=== PATIENT | female | born 1985 | race African-American/Black ===

== ENCOUNTER 2018-10-25 08:03 | Emergency (ER) | payer SELFPAY ==
--- NOTE | 2018-10-25 08:43 | RAD ---
CHEST PA AND LATERAL: HISTORY: A 33-year-old female with a history of chest pain for 2 days. COMPARISON: 09/11/2014. FINDINGS: Heart size is normal. The lungs are clear. IMPRESSION: No acute intrathoracic disease. Stable from prior study. POS: [facility]
[2018-10-25] MEDS ORDERED: HYDROcodone/Acetaminophen 10/325 mg Tablet ONE (09:06)
[2018-10-25 09:23] LABS: Hemoglobin 13.7 g/dL (12.0-16.0); Mean Corpuscular HGB CONC 33.4 g/dL (32.0-36.0); Mean Corpuscular Hemoglobin 28.9 pg (27.0-31.0); Mean Corpuscular Volume 86.5 fL (78.0-98.0); Mean Platelet Volume 6.9 fL (7.4-10.4); Platelet Count 397 thou/uL (130-400); RBC Distribution Width 11.9 % (11.5-14.5); Red Blood Cell (RBC) Count 4.75 mill/uL (4.20-5.40)
[2018-10-25 09:27] LABS: BHCG - Serum Negative (NEGATIVE); Pregs Control Background? CLEAR/WHITE (CLR/WHITE); Pregs Control Bar Appear? YES (CONTROL BAR)
[2018-10-25 09:36] LABS: ALT (SGPT) 55 U/L (8-55); AST (SGOT) 32 U/L (5-34); Albumin 4.4 g/dL (3.5-5.0); Alkaline Phosphatase 114 U/L (40-150); Anion Gap 16 mmol/L (10-20); BUN (Urea Nitrogen) 11 mg/dL (7.0-18.7); Bilirubin, Total 0.3 mg/dL (0.2-1.2); Calc. Creatinine Clearance 0 mL/min (70-130); Carbon Dioxide 23 mmol/L (22-29); Chloride 104 mmol/L (98-107); Estimated GFR-MDRD 87; Globulin 3.6 g/dL (2.4-3.5); Glucose 105 mg/dL (70-105); Potassium 3.7 mmol/L (3.5-5.1); Sodium 139 mmol/L (136-145)
[2018-10-25 09:40] LABS: Band 2 % (5-11); Lymphocytes 59 % (21-51); MDiff Complete? YES; Monocytes 5 % (0-10); Neutrophil 32 % (42-75); RBC Morphology Normal; Reactive Lymphocytes 2 % (0-10)
[2018-10-25] MEDS ORDERED: Acetaminophen 325 MG TAB ONE (10:25)
--- NOTE | 2018-10-26 13:51 | EKG ---
Test Reason : CP Blood Pressure : / mmHG Vent. Rate : 078 BPM Atrial Rate : 080 BPM P-R Int : 000 ms QRS Dur : 080 ms QT Int : 360 ms P-R-T Axes : 000 058 028 degrees QTc Int : 410 ms Accelerated Junctional rhythm Abnormal ECG Confirmed by BARRY SAEED D.O. ([id number]), photo editor JAYLON PIPER ([id number]) on 10/26/2018 1:51:16 PM Referred By: Confirmed By:BARRY SAEED D.O.
== END 2018-10-25 11:49 | disposition home or self-care (01) ==
LOC: ERS 08:03
DX: J18.9 Pneumonia, unspecified organism (principal); J45.909 Unspecified asthma, uncomplicated; F41.9 Anxiety disorder, unspecified; Z79.899 Other long term (current) drug therapy; Z79.51 Long term (current) use of inhaled steroids
CPT/HCPCS: 36415; 71046; 80053; 83880; 84484; 84703; 85025; 85379; 87804; 93005; 94640; J7620

== ENCOUNTER 2018-11-22 14:17 | Emergency (ER) | payer SELFPAY ==
[~2018-11-22 14:17] MED LIST: ISOVUE-370 76%-LOCM 1 ML ONE
[2018-11-22] MEDS ORDERED: Morphine 4 MG/ML VIAL ONE (14:35)
[2018-11-22] MEDS ORDERED: Ondansetron PF 4 MG/2 ML Vial ONE (14:38)
[2018-11-22 14:56] LABS: #Lymphocytes 3.5 thou/uL (1.20-3.40); #Monocytes 0.5 thou/uL (0.11-0.59); #Neutrophils 4.5 thou/uL (1.40-6.50); %Basophils 0.4 % (0.0-1.0); %Eosinophils 0.2 % (0.0-10.0); %Lymphocytes 40.8 % (21.0-51.0); %Monocytes 5.9 % (0.0-10.0); %Neutrophils 52.6 % (42.0-75.0); Mean Corpuscular HGB CONC 32.6 g/dL (32.0-36.0); Mean Corpuscular Hemoglobin 28.5 pg (27.0-31.0); Mean Corpuscular Volume 87.5 fL (78.0-98.0); Mean Platelet Volume 6.5 fL (7.4-10.4); Platelet Count 373 thou/uL (130-400); RBC Distribution Width 11.8 % (11.5-14.5); Red Blood Cell (RBC) Count 4.56 mill/uL (4.20-5.40); White Blood Cell (WBC) Count 8.5 thou/uL (4.8-10.8)
[2018-11-22 15:05] LABS: BHCG - Serum Negative (NEGATIVE); Pregs Control Background? CLEAR/WHITE (CLR/WHITE); Pregs Control Bar Appear? YES (CONTROL BAR)
[2018-11-22 15:15] LABS: ALT (SGPT) 64 U/L (8-55); AST (SGOT) 42 U/L (5-34); Albumin 4.6 g/dL (3.5-5.0); Alkaline Phosphatase 112 U/L (40-150); Anion Gap 13 mmol/L (10-20); BUN (Urea Nitrogen) 14 mg/dL (7.0-18.7); Bilirubin, Total 0.3 mg/dL (0.2-1.2); Calc. Creatinine Clearance 0 mL/min (70-130); Calcium 10.1 mg/dL (7.8-10.44); Carbon Dioxide 25 mmol/L (22-29); Chloride 106 mmol/L (98-107); Estimated GFR-MDRD 78; Globulin 3.6 g/dL (2.4-3.5); Glucose 100 mg/dL (70-105); Potassium 3.9 mmol/L (3.5-5.1); Protein, Total 8.2 g/dL (6.0-8.3); Sodium 140 mmol/L (136-145)
--- NOTE | 2018-11-22 15:51 | CT ---
CT CERVICAL SPINE PERFORMED WITHOUT CONTRAST ENHANCEMENT: Date: 11/22/18 HISTORY: Fall with neck pain. FINDINGS: The vertebral bodies are normal in height. Disc spaces appear well preserved. The facets are in juanito l alignment. There is no evidence for canal or foraminal stenosis. There is no CT evidence of fractur e. The lung apices are clear. IMPRESSION: No CT evidence of fracture of the cervical spine. POS: [facility]
--- NOTE | 2018-11-22 15:52 | CT ---
CT BRAIN WITHOUT CONTRAST: Date: 11/22/18 HISTORY: Fall. Headache. FINDINGS: No evidence of infarct, hemorrhage, midline shift, or abnormal extra-axial fluid collections are seen . The ventricular size is normal and the basilar cisterns are patent. The bony calvarium is intact. T he visualized paranasal sinuses and mastoid air cells are well aerated. IMPRESSION: No CT evidence of acute intracranial process. POS: [facility]
--- NOTE | 2018-11-22 16:00 | CT ---
CT OF ABDOMEN AND PELVIS PERFORMED WITH IV CONTRAST ENHANCEMENT: Date: 11/22/18 HISTORY: Patient fell down stairs, falling on stomach. Reports vaginal bleeding and blood clots in toilet. Gen eralized abdominal pain. FINDINGS: The lung bases are clear. No signs of pneumothorax or pleural effusion. There are diffuse fatty changes of the liver, which measures 17.8 cm in length. The spleen and pancre as regions are unremarkable. Gallbladder has been removed. Right and left adrenal glands, and right and left kidneys are normal in size and appearance. No free fluid. No signs for any bowel wall injury. CT of pelvis was performed with contrast enhancement. There is bilateral tubal ligation noted. There is thickened endometrium and what appears to be some fluid, which is probably complex fluid, in the v aginal region. This is compatible with the history of bleeding. There is no free fluid demonstrated. The pelvic ring appears intact without evidence of fracture. IMPRESSION: 1. Thickened endometrium with what appears to be a fluid-fluid level in the endometrium, and event p robably extending into the posterior vagina region. This would be consistent with the history of ethel lundy. 2. No evidence of solid organ injury. 3. Diffuse fatty changes of the liver. POS: [facility]
[2018-11-22 16:49] LABS: Bilirubin Negative (Negative); Blood, Urine Large (Negative); Clarity CLEAR (Clear); Glucose, Urine (Dipstick) Negative (Negative); Leukocyte Negative (Negative); Nitrite Negative (Negative); Protein, Urine (Dipstick) Negative (Neg-Trace); Urobilinogen 0.2 mg/dL (0.2-1.0)
[2018-11-22 16:51] LABS: Bacteria/HPF None Seen HPF (None Seen); WBC/HPF 0-3 HPF (0-3)
[2018-11-22 16:52] LABS: Pathc Cast-AUWi Flag 7.41 (0-2.49)
[2018-11-22 16:53] LABS: Specific Gravity, Urine Greater than 1.060 (1.002-1.036)
--- NOTE | 2018-11-22 16:54 | PDOC.EVN ---
Event Note - Event Note Event Note: OBGYN Scientific Process Operator Asked to see patient by Dr Thornton Patient seen in bed 23 at approx 1615 or so. Consult dictated by me...then called for CS in L&D. Called to assess "blood in DARIELA and in cervix" on CT scan. Speculum exam performed by me at bedside (with Yared Cheney- Flaca as assist) Please see my consult dictation. DX: no acute machine engraver needs; suspect menses in process
[2018-11-22 16:59] LABS: Amphetamine Not Detected (NotDetected); Barbiturates Screen Not Detected (NotDetected); Benzodiazepine Screen Not Detected (NotDetected); Cocaine Metabolite Screen Not Detected (NotDetected); Medtox Control Line Valid? VALID (VALID); Medtox Reader # READER 1; Methadone Not Detected (NotDetected); Methamphetamine Not Detected (NotDetected); Opiate Screen Detected (NotDetected); Oxycodone Screen Not Detected (NotDetected); Phencyclidine (PCP) Not Detected (NotDetected); THC/Cannabinoid Screen Not Detected (NotDetected); Tricyclic Screen Not Detected (NotDetected)
[2018-11-22 17:02] LABS: Hyaline Casts/LPF NONE SEEN LPF (0-3 Hyaline); Other Casts/LPF None Seen LPF (0-3 Hyaline)
[2018-11-22 17:03] LABS: Crystals/HPF 1+ AMORPH URATES HPF (Negative)
--- NOTE | 2018-11-22 17:09 | CON ---
DATE OF CONSULTATION: 11/22/2018 TIME OF EVALUATION: Roughly 1600 hours until 1615 hours. REQUESTING PHYSICIAN: Dr. Thornton with Emergency Medicine. REASON FOR EVALUATION: Suspected "blood in lower uterine segment" on CT scan. HISTORY OF PRESENT ILLNESS: In brief, this is a 33-year-old , G5, P5, with 4 previous C-sections, the last was 16 years ago, whose last menstrual period of July 2018. The patient arrived to the ER after a fall down some steps on to concrete, and landed on her abdomen. She also states that she has had some long history of irregular cycles with an episode of vaginal bleeding after the fall. She denies fevers or loss of consciousness. I was called because the Emergency Medicine physician talked to the radiologist and the radiologist on CT scan did not find any evidence of pelvic mass or free fluid, but there was "blood in the lower uterine segment and cervix." REVIEW OF SYSTEMS: Complete review of systems was performed and is otherwise negative unless specified in the HPI. PAST MEDICAL HISTORY: Significant for asthma and she has an inhaler. She has a history of cholelithiasis, but this has been surgically remedied. PAST SURGICAL HISTORY: x4 with the last 16 years ago. The patient also had a cholecystectomy. ALLERGIES: NONE. SOCIAL HISTORY: Negative for alcohol, tobacco, or drug use. Last Pap smear was in November 2017, and by her report, it was normal. She has a long history of irregular cycles. No recent intercourse is reported. PHYSICAL EXAMINATION: GENERAL: She is afebrile and normotensive. Clinically, she is in no acute distress. ABDOMEN: Soft and nontender, although it is obese. We performed a perineal inspection and no christine blood or lacerations are noted. A speculum examination was performed after informed consent, which reveals no vaginal lacerations, no active bleeding in the vagina, and a parous appearing cervix. There is a trace amount of blood per cervical os compatible with the beginning of a period (premenstrual bleeding). Bimanual exam is deferred as the patient just had a CT scan. LABORATORY DATA: UCG is negative. ASSESSMENT: This is a 33-year-old , multiparous patient, who is status post fall. I was consulted as Gynecology for evaluation of blood in the lower uterine segment. This is most compatible based on the history of a new start to a cycle. I did mention to her that having a cycle every 3 months was not normal and she required outpatient [employer] followup for cycle control and evaluation. PLAN: 1. No acute evidence of [employer] need. 2. No evidence of intravaginal bleeding. 3. No evidence of intrapelvic pathology based on CT scan. 4. No acute [employer] concern at this time. 5. Results of sterile speculum exam, performed also by Yared Cheney (a 30-year medical student) were reported verbally in person to Dr. Thornton. Dr. Thornton is aware. Job ID: [id number]
== END 2018-11-22 16:28 | disposition home or self-care (01) ==
LOC: ERS 14:17
DX: R10.819 Abdominal tenderness, unspecified site (principal); M54.2 Cervicalgia; J45.909 Unspecified asthma, uncomplicated; F41.9 Anxiety disorder, unspecified; Z79.899 Other long term (current) drug therapy; W10.9XXA Fall (on) (from) unspecified stairs and steps, initial encounter
CPT/HCPCS: 70450; 72125; 74177; 80053; 80306; 81003; 81015; 84703; 85025; 96374; 96375; J2270; J2405; Q9966

== ENCOUNTER 2019-03-01 02:15 | Emergency (ER) | payer SELFPAY ==
[2019-03-01] MEDS ORDERED: Ketorolac Tromethamine 60 MG/2 ML VIAL ONE (03:37)
== END 2019-03-01 03:59 | disposition home or self-care (01) ==
LOC: ERS 02:15
DX: H60.92 Unspecified otitis externa, left ear (principal); J45.909 Unspecified asthma, uncomplicated; F41.9 Anxiety disorder, unspecified
CPT/HCPCS: 96372; J1885

== ENCOUNTER 2019-09-01 18:41 | Observation (INO) | payer SELFPAY ==
[~2019-09-01 18:41] MED LIST changes: -ISOVUE-370 76%-LOCM 1 ML ONE; +Iopamidol-370 76% 500 ML 1 ML ONE
[2019-09-01 19:21] LABS: #Lymphocytes 1.8 thou/uL (1.20-3.40); #Monocytes 0.3 thou/uL (0.11-0.59); #Neutrophils 5.8 thou/uL (1.40-6.50); %Basophils 0.1 % (0.0-1.0); %Eosinophils 0.2 % (0.0-10.0); %Lymphocytes 22.4 % (21.0-51.0); %Monocytes 4.1 % (0.0-10.0); %Neutrophils 73.1 % (42.0-75.0); Hemoglobin 14.3 g/dL (12.0-16.0); Mean Corpuscular HGB CONC 33.8 g/dL (32.0-36.0); Mean Corpuscular Hemoglobin 28.8 pg (27.0-31.0); Mean Corpuscular Volume 85.4 fL (78.0-98.0); Platelet Count 383 thou/uL (130-400); RBC Distribution Width 11.8 % (11.5-14.5); Red Blood Cell (RBC) Count 4.95 mill/uL (4.20-5.40)
[2019-09-01 19:44] LABS: ALT (SGPT) 67 U/L (8-55); AST (SGOT) 37 U/L (5-34); Albumin 4.4 g/dL (3.5-5.0); Alkaline Phosphatase 116 U/L (40-110); Anion Gap 15 mmol/L (10-20); BUN (Urea Nitrogen) 13 mg/dL (7.0-18.7); Bilirubin, Total 0.5 mg/dL (0.2-1.2); CK (CPK) 128 U/L (29-168); Calc. Creatinine Clearance 0 mL/min (70-130); Calcium 9.8 mg/dL (7.8-10.44); Carbon Dioxide 23 mmol/L (22-29); Chloride 104 mmol/L (98-107); Estimated GFR-MDRD Greater than 90; Globulin 3.5 g/dL (2.4-3.5); Glucose 87 mg/dL (70-105); Lipase 20 U/L (8-78); Potassium 4.1 mmol/L (3.5-5.1); Protein, Total 7.9 g/dL (6.0-8.3); Sodium 138 mmol/L (136-145)
[2019-09-01 20:32] LABS: BHCG - Serum Negative (NEGATIVE); Pregs Control Background? CLEAR/WHITE (CLR/WHITE); Pregs Control Bar Appear? YES (CONTROL BAR)
[2019-09-01 20:50] LABS: Bilirubin Negative (Negative); Blood, Urine Negative (Negative); Clarity Turbid (Clear); Glucose, Urine (Dipstick) Normal (Negative); Leukocyte Negative Leu/uL (Negative); Nitrite Negative (Negative); Protein, Urine (Dipstick) 20 mg/dL (Neg-Trace); Urobilinogen Normal mg/dL (Less than 2)
--- NOTE | 2019-09-01 21:33 | CT ---
CT PULMONARY ANGIOGRAM WITH IV CONTRAST AND 3D POSTPROCESSING: Date: 09/01/19 HISTORY: Dyspnea, syncope. FINDINGS: There is inadequate opacification of the pulmonary arterial vasculature for satisfactory evaluation t o exclude pulmonary embolism. The thoracic aorta is better opacified without evidence of aneurysm or dissection. No pleural or pericardial effusions are seen. No pneumothoraces, focal areas of consolida tion or lung masses/nodules are identified. Upper abdominal tomograms demonstrate changes of cholecys tectomy. No acute osseous abnormalities are seen. IMPRESSION: Exam is nondiagnostic for pulmonary embolism. POS: [facility]
--- NOTE | 2019-09-01 22:21 | CT ---
CT BRAIN WITHOUT CONTRAST: History: Syncope. FINDINGS: Comparison is made with exam of 11-22-18. No evidence of acute infarct, hemorrhage, midline shift, or abnormal extraaxial fluid collections are seen. The ventricular size is normal and the basilar cisterns patent. The bony calvarium is intact. There is left paranasal clear and the mastoid air cells are well aerated. IMPRESSION: No CT evidence of acute intracranial process. POS: [facility]
[2019-09-02 00:26] LABS: Troponin I Less than 0.010 ng/mL (< 0.028)
[2019-09-02 03:07] LABS: Troponin I Less than 0.010 ng/mL (< 0.028)
[2019-09-02 07:29] VITALS: BMI 40.9
[2019-09-02] MEDS ORDERED: Sodium Chloride 0.9% 1,000 ML IV SCH (08:40)
[2019-09-02] MEDS ORDERED: Ondansetron ODT 4 MG TAB SL PRN (08:40)
[2019-09-02] MEDS ORDERED: Ondansetron PF 4 MG/2 ML Vial IVP PRN ×2 (08:40→12:29)
--- NOTE | 2019-09-02 11:24 | NM ---
VQ SCAN: HISTORY: Shortness of breath, elevated d-dimer TECHNIQUE: A ventilation/perfusion scan was performed using 10 mCi xenon-133 by inhalation for the ventilation s tudy followed by the intravenous administration of 6 mCi technetium 99m-MAA for the perfusion scan. CORRELATION: CTPA from previous evening. FINDINGS: Fairly homogeneous is noted in the tracer distribution to the lung simon bilaterally on ventilation and perfusion scans. No mismatched pleural-based, wedge-shaped, segmental or subsegmental perfusion defects are identified . There is tracer retention on the washout phase of the ventilation scan, compatible with COPD. IMPRESSION: Low probability for pulmonary embolism.
--- NOTE | 2019-09-02 11:24 | RAD ---
XR Chest Pa Lat STANDARD HISTORY: Shortness of breath, d-dimer COMPARISON: 10/25/2018 FINDINGS: The heart size is normal. The lungs are well expanded without focal areas of consolidation, pneumothorax or pleural effusions. IMPRESSION: No radiographic evidence of acute cardiopulmonary process.
[2019-09-02] MEDS ORDERED: Acetaminophen 325 MG TAB PO PRN (12:29)
[2019-09-02 14:49] LABS: Amphetamine Not Detected (NotDetected); Barbiturates Screen Not Detected (NotDetected); Benzodiazepine Screen Not Detected (NotDetected); Cocaine Metabolite Screen Not Detected (NotDetected); Medtox Control Line Valid? VALID (VALID); Medtox Reader # READER 1; Methadone Not Detected (NotDetected); Methamphetamine Not Detected (NotDetected); Opiate Screen Not Detected (NotDetected); Oxycodone Screen Not Detected (NotDetected); Phencyclidine (PCP) Not Detected (NotDetected); THC/Cannabinoid Screen Not Detected (NotDetected); Tricyclic Screen Not Detected (NotDetected)
[2019-09-02] MEDS ORDERED: levETIRAcetam 500 MG TAB PO SCH (16:45)
--- NOTE | 2019-09-02 19:12 | HP ---
PRESENTING COMPLAINT: Syncope. HISTORY OF PRESENT ILLNESS: The patient with a past medical history of asthma, morbid obesity, presented with episode of syncope. As per the patient, she has been having episodes of syncopes multiple times. She had around about 15 episodes of syncope in the last 3 months. Two days ago, she had episode of syncope at home and then she again had yesterday episode of syncope while she was at home, she was walking and she does not remember and then she remembers kids were waking her up. The patient denies any headache, dizziness, nausea, vomiting, or diarrhea before or after the event. As per patient, she had back pain before that one and she has a mild back pain before. The patient has never seen a mechanical ordnance assembler outpatient or a neurologist. Currently as per patient, she is walking normally, not in distress. Denies any chest pain, palpitation, shortness of breath, headache, or dizziness. The patient is admitted for further evaluation. SYSTEMIC REVIEW: As mentioned above. PAST MEDICAL HISTORY: As mentioned above. PAST SURGICAL HISTORY: History of cholecystectomy, history of . FAMILY HISTORY: Cancer, hypertension. Mother had bipolar and schizophrenia. ALLERGIES: TO EGG. HOME MEDICATIONS: 1. Valacyclovir. 2. Sertraline. PHYSICAL EXAMINATION: VITAL SIGNS: Blood pressure 112/56. Orthostatic vitals performed at 7:42, both sitting and standing without any orthostatic drop. Temperature 98.4, pulse 70, respirations 16, oxygen saturation 98%. GENERAL: Morbidly obese lady, lying in bed comfortably, not in any distress. Conjunctivae are normal. Oral mucosa is moist. NECK: Supple. No JVD. No lymphadenopathy. CHEST: Normal vesicular breathing. No rhonchi. No wheezing. HEART: Sound normal. No murmur, gallop, or rub. ABDOMEN: Soft, benign, nontender. No visceromegaly. EXTREMITIES: Negative edema of feet. No rash. No cyanosis. LABORATORY DATA: UA negative. CBC unremarkable. D-dimer 0.49. CMP unremarkable except AST 37, ALT 67. Troponins negative x3. test negative. Brain CT negative for acute findings. Thoracic CTA negative for pulmonary embolism. Low probability for pulmonary embolism on V/Q scan. Chest x-ray negative. EKG; normal sinus rhythm, nonspecific ST-T changes. IMPRESSION: Recurrent syncope, unclear cause. The patient had around about 15 episodes as per the patient in last 3 months. Never had workup done outpatient. Never seen a mechanical ordnance assembler. The patient's troponin is negative. EKG is without anything and negative. CTA negative for acute pulmonary embolism. We will get an echocardiogram. Serial troponins negative. Tele did not show any rhythm abnormality. We will continue tele monitoring and echocardiogram. CT brain negative for acute findings. Neurology also consulted, if the patient needs any further workup, we will also get a urine toxicology. The patient during all these episodes as per the patient, never had any injury to herself. Once echo is normal and no rhythm abnormality noted by tele and if evaluation done by Neuro and no further recommendation, we will recommend the patient to follow up outpatient Cardiology in case if the patient needs further monitoring, event monitoring. Plan discussed with the patient and family member at bedside. Plan discussed with the nursing staff. Job ID: [id number]
[2019-09-02] MEDS: Famotidine 20 MG TAB PO SCH (20:59)
[2019-09-02] MEDS: levETIRAcetam 500 MG TAB PO SCH (20:59)
[2019-09-03 04:59] LABS: Hemoglobin 12.9 g/dL (12.0-16.0); Lymphocytes 48 % (21-51); MDiff Complete? YES; Mean Corpuscular HGB CONC 33.7 g/dL (32.0-36.0); Mean Corpuscular Hemoglobin 28.7 pg (27.0-31.0); Mean Corpuscular Volume 85.3 fL (78.0-98.0); Monocytes 10 % (0-10); Neutrophil 42 % (42-75); Platelet Count 344 thou/uL (130-400); Platelet Morphology Comment Appears Adequate; RBC Distribution Width 11.8 % (11.5-14.5); Red Blood Cell (RBC) Count 4.48 mill/uL (4.20-5.40); White Blood Cell (WBC) Count 6.3 thou/uL (4.8-10.8)
[2019-09-03 05:12] LABS: ALT (SGPT) 48 U/L (8-55); AST (SGOT) 21 U/L (5-34); Albumin 3.8 g/dL (3.5-5.0); Alkaline Phosphatase 108 U/L (40-110); Anion Gap 13 mmol/L (10-20); BUN (Urea Nitrogen) 14 mg/dL (7.0-18.7); Bilirubin, Total Less than 0.2 mg/dL (0.2-1.2); Calc. Creatinine Clearance 181 mL/min (70-130); Calcium 9.1 mg/dL (7.8-10.44); Carbon Dioxide 22 mmol/L (22-29); Chloride 108 mmol/L (98-107); Estimated GFR-MDRD Greater than 90; Globulin 3.1 g/dL (2.4-3.5); Glucose 95 mg/dL (70-105); Potassium 3.9 mmol/L (3.5-5.1); Protein, Total 6.9 g/dL (6.0-8.3); Sodium 139 mmol/L (136-145)
[2019-09-03] MEDS ORDERED: Enoxaparin Sodium 40 MG/0.4 ML SYRINGE SC SCH (09:00)
[2019-09-03] MEDS: Famotidine 20 MG TAB PO SCH (10:18)
[2019-09-03] MEDS: levETIRAcetam 500 MG TAB PO SCH (10:18)
--- NOTE | 2019-09-03 11:42 | MRI ---
Exam: Brain MRI without contrast HISTORY: Syncope COMPARISON: None FINDINGS: Calvarial marrow signal intensity: Appropriate T1 signal Gradient echo sequence: No hemorrhage Brain parenchyma: No mass, mass effect or midline shift. Brain volume, age-appropriate. Cortical cuevas-white matter differentiation: Preserved Restricted diffusion: Central arterial flow voids are maintained. Absent restricted diffusion White matter signal intensities:Scattered T2 and FLAIR white matter hyperintensities, nonspecific. Sinuses: Adequate aeration of the paranasal sinuses and mastoid air cells. IMPRESSION: 1. Absent restricted diffusion. No acute infarct 2. Scattered T2 and FLAIR white matter hyperintensities, nonspecific. Differential considerations inc lude demyelinating processes, sequelae of vasculitis, sequelae of migraine headaches, Lyme disease. Correlate clinically.
[2019-09-03 16:36] VITALS: BP 134/83; TEMP 100.6
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
--- NOTE | 2019-09-04 10:31 | EEG ---
Referring Physician: Yury TAYLOR EEG # [id number] TEST TYPE: ROUTINE PORTABLE INPATIENT REPORT: AN EEG USING THE INTERNATIONAL TEN-TWENTY SYSTEM OF ELECTRODE PLACEMENT WAS PERFORMED. The waking background is a high amplitude 9-10 hertz alpha frequency. The patient became a bit drowsy, but no sleep was seen. Photic stimulation was unremarkable. No epileptiform features were present. IMPRESSION: THIS IS A NORMAL AWAKE AND DROWSY EEG. Contracting Manager: [employer] Field Representative: EEG.NIR MONTALVO
--- NOTE | 2019-09-04 10:40 | DIS ---
DATE OF ADMISSION: 09/01/2019 DATE OF DISCHARGE: 09/03/2019 DISCHARGE DIAGNOSES: 1. Recurrent syncope, possible seizure episodes. 2. Morbid obesity. 3. History of asthma. PHYSICAL EXAMINATION: VITAL SIGNS: On discharge, temperature 98.1, pulse 83, respirations 14, oxygen saturation 99%, blood pressure 121/57. GENERAL: The patient is a morbidly obese lady, lying in bed comfortably, not in distress. HEENT: Conjunctivae normal. Oral mucosa moist. NECK: Supple. No JVD. HEART: Heart sounds normal. CHEST: Normal vesicular breathing. ABDOMEN: Soft. EXTREMITIES: Negative edema of feet. LABORATORY DATA: EKG, normal sinus rhythm, nonspecific ST-T changes. MRI brain, absent restricted diffusion, no acute infarcts, scattered T2 and FLAIR white matter hyperintensities, nonspecific. Differential consideration include demyelinating process, scale of vasculitis, scale of migraine, headaches, Lyme disease. Echocardiogram, normal ejection fraction. CT perfusion test, negative for findings. Chest CTA, negative for pulmonary embolism. Troponins negative. Urine toxicology negative. HOSPITAL SUMMARY: [facility] was [facility] with 2 episodes of syncope before admission. The patient had in last 3 months of 15 episodes of syncope as per the patient. The patient does not remember what happened during the episode, but the patient never got injured or anything. The patient's CAT scan of brain, negative for acute findings on admission with troponins. Telemetry did not show any rhythm abnormalities. Echocardiogram was normal. The patient's MRI brain negative for acute findings and shows nonspecific findings. The patient was evaluated by Neuro, who started on Keppra. The patient currently is stable, in no distress. No chest pain. No shortness of breath. The patient has never seen a neurologist and a acidizer in the past. The patient was once cleared by Neurology. The patient recommended to follow up outpatient Cardiology if the patient needs any event monitoring or a loop recorder placed. Plan discussed with the patient and family member in detail. The patient also advised not to driving until she can be cleared by Neurology. The patient will be discharged home with a followup Neurology, Cardiology, PCP, and recommended no driving for unless she follows up with Neurology and cleared by Neurology. Job ID: [id number]
== END 2019-09-03 17:03 | disposition home or self-care (01) ==
LOC: ERS 18:41 → 2SW 22:53 → ERHOLD 23:22 → 2SW 09-02 07:16
PROVIDERS: ADMIT Family Medicine; ATTEND Family Medicine
DX: R55 Syncope and collapse (principal); J45.909 Unspecified asthma, uncomplicated; F41.9 Anxiety disorder, unspecified; F32.9 Major depressive disorder, single episode, unspecified; E66.01 Morbid (severe) obesity due to excess calories; Z68.41 Body mass index [BMI] 40.0-44.9, adult; Z79.899 Other long term (current) drug therapy; Z91.012 Allergy to eggs
CPT/HCPCS: 36415; 70450; 70551; 71046; 71275; 78582; 80053; 80306; 81003; 82550; 83690; 83880; 84484; 84703; 85007; 85025; 85027; 85379; 93005; 93306; 95816; 95819; 96360; 96361; 96372; A9540; A9558; G0378; J1650; Q9967

== ENCOUNTER 2019-09-14 19:43 | Emergency (ER) | payer SELFPAY | END 2019-09-14 21:24 | disposition home or self-care (01) | LOC: ERS 19:43 | DX: R55 Syncope and collapse (principal); J45.909 Unspecified asthma, uncomplicated; F41.9 Anxiety disorder, unspecified; F32.9 Major depressive disorder, single episode, unspecified; Z79.899 Other long term (current) drug therapy | CPT/HCPCS: 93005 ==

== ENCOUNTER 2019-11-19 19:44 | Emergency (ER) | payer SELFPAY ==
--- NOTE | 2019-11-19 20:12 | RAD ---
XR Chest 1 View Portable History: Chest pain Comparison: Radiograph September 02, 2019 Findings: Lungs are without confluent airspace consolidation, pneumothorax, or effusion. Cardiac silh ouette and mediastinal contours are within normal limits. No acute osseous abnormality. Impression: No acute intrathoracic abnormality.
[2019-11-19 20:18] LABS: #Lymphocytes 4.3 thou/uL (1.20-3.40); #Monocytes 0.6 thou/uL (0.11-0.59); #Neutrophils 3.9 thou/uL (1.40-6.50); %Basophils 0.5 % (0.0-1.0); %Eosinophils 0.4 % (0.0-10.0); %Lymphocytes 48.3 % (21.0-51.0); %Monocytes 6.7 % (0.0-10.0); %Neutrophils 44.1 % (42.0-75.0); Hemoglobin 12.1 g/dL (12.0-16.0); Mean Corpuscular HGB CONC 33.2 g/dL (32.0-36.0); Mean Corpuscular Hemoglobin 28.4 pg (27.0-31.0); Mean Corpuscular Volume 85.8 fL (78.0-98.0); Mean Platelet Volume 6.8 fL (7.4-10.4); Platelet Count 445 thou/uL (130-400); RBC Distribution Width 11.5 % (11.5-14.5); Red Blood Cell (RBC) Count 4.24 mill/uL (4.20-5.40); White Blood Cell (WBC) Count 8.8 thou/uL (4.8-10.8)
[2019-11-19 20:42] LABS: ALT (SGPT) 42 U/L (8-55); AST (SGOT) 27 U/L (5-34); Albumin 4.2 g/dL (3.5-5.0); Alkaline Phosphatase 121 U/L (40-110); Anion Gap 11 mmol/L (10-20); BUN (Urea Nitrogen) 13 mg/dL (7.0-18.7); Bilirubin, Total 0.2 mg/dL (0.2-1.2); CK (CPK) 199 U/L (29-168); Calc. Creatinine Clearance 0 mL/min (70-130); Calcium 9.5 mg/dL (7.8-10.44); Carbon Dioxide 28 mmol/L (22-29); Chloride 107 mmol/L (98-107); Estimated GFR-MDRD 79; Globulin 3.1 g/dL (2.4-3.5); Glucose 94 mg/dL (70-105); Lipase 39 U/L (8-78); Potassium 4.2 mmol/L (3.5-5.1); Protein, Total 7.3 g/dL (6.0-8.3); Sodium 142 mmol/L (136-145)
[2019-11-19] MEDS ORDERED: Acetaminophen 500 MG TAB ONE (21:08)
[2019-11-19] MEDS ORDERED: Aspirin 325 MG TAB ONE (22:34)
== END 2019-11-19 23:45 | disposition home or self-care (01) ==
LOC: ERS 19:44
DX: R07.9 Chest pain, unspecified (principal); R20.2 Paresthesia of skin; J45.909 Unspecified asthma, uncomplicated; F41.9 Anxiety disorder, unspecified; F32.9 Major depressive disorder, single episode, unspecified; Z79.899 Other long term (current) drug therapy
CPT/HCPCS: 36415; 71045; 80053; 82550; 83690; 84443; 84484; 85025; 85379; 93005

== ENCOUNTER 2020-02-04 14:50 | Emergency (ER) | payer OTHER, SELFPAY ==
[~2020-02-04 14:50] MED LIST changes: -Iopamidol-370 76% 500 ML 1 ML ONE; +Magnevist 469MG/ML 20 ML VIAL ONE
[2020-02-04] MEDS ORDERED: Lorazepam 1 MG TAB ONE ×2 (15:19→18:25)
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
[2020-02-04 17:05] LABS: #Basophils 0.1 thou/uL (0.0-0.2); #Eosinphils 0.1 thou/uL (0.0-0.7); #Lymphocytes 2.6 thou/uL (1.20-3.40); #Monocytes 0.6 thou/uL (0.11-0.59); #Neutrophils 5.5 thou/uL (1.40-6.50); %Basophils 0.6 % (0.0-1.0); %Eosinophils 0.7 % (0.0-10.0); %Monocytes 7.2 % (0.0-10.0); %Neutrophils 62.6 % (42.0-75.0); Hemoglobin 12.6 g/dL (12.0-16.0); Mean Corpuscular HGB CONC 32.8 g/dL (32.0-36.0); Mean Corpuscular Hemoglobin 28.3 pg (27.0-31.0); Mean Corpuscular Volume 86.3 fL (78.0-98.0); Mean Platelet Volume 7.1 fL (7.4-10.4); Platelet Count 402 thou/uL (130-400); RBC Distribution Width 11.8 % (11.5-14.5); Red Blood Cell (RBC) Count 4.44 mill/uL (4.20-5.40); White Blood Cell (WBC) Count 8.8 thou/uL (4.8-10.8)
[2020-02-04 17:18] LABS: BHCG - Serum Negative (NEGATIVE); Pregs Control Background? CLEAR/WHITE (CLR/WHITE); Pregs Control Bar Appear? YES (CONTROL BAR)
[2020-02-04 17:26] LABS: ALT (SGPT) 42 U/L (8-55); AST (SGOT) 25 U/L (5-34); Albumin 4.4 g/dL (3.5-5.0); Alkaline Phosphatase 118 U/L (40-110); Anion Gap 13 mmol/L (10-20); BUN (Urea Nitrogen) 13 mg/dL (7.0-18.7); Bilirubin, Total 0.2 mg/dL (0.2-1.2); Calc. Creatinine Clearance 0 mL/min (70-130); Calcium 9.7 mg/dL (7.8-10.44); Carbon Dioxide 25 mmol/L (22-29); Chloride 105 mmol/L (98-107); Estimated GFR-MDRD Greater than 90; Globulin 3.6 g/dL (2.4-3.5); Glucose 90 mg/dL (70-105); Potassium 3.6 mmol/L (3.5-5.1); Sodium 139 mmol/L (136-145)
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
[2020-02-04 20:37] LABS: Acetaminophen Less than 6.0 mcg/mL (10.0-30.0); Alcohol Less than 10 mg/dL (Less than 10); Salicylate Less than 8.0 mg/dL (15.0-30.0)
== END 2020-02-04 22:51 | disposition home or self-care (01) ==
LOC: ERS 14:50
DX: H53.9 Unspecified visual disturbance (principal); J45.909 Unspecified asthma, uncomplicated; F41.9 Anxiety disorder, unspecified; F32.9 Major depressive disorder, single episode, unspecified; Z79.899 Other long term (current) drug therapy; V89.2XXA Person injured in unspecified motor-vehicle accident, traffic, initial encounter
CPT/HCPCS: 70450; 70553; 72125; 80053; 80307; 84443; 84703; 85025; A9579

== ENCOUNTER 2021-01-17 13:06 | Emergency (ER) | payer SELFPAY ==
[2021-01-17 13:36] LABS: #Basophils 0.1 thou/uL (0.0-0.2); #Eosinphils 0.1 thou/uL (0.0-0.7); #Lymphocytes 4.2 thou/uL (1.20-3.40); #Monocytes 0.6 thou/uL (0.11-0.59); #Neutrophils 4.2 thou/uL (1.40-6.50); %Basophils 0.6 % (0.0-1.0); %Eosinophils 0.7 % (0.0-10.0); %Lymphocytes 46.2 % (21.0-51.0); %Monocytes 6.5 % (0.0-10.0); %Neutrophils 45.9 % (42.0-75.0); Hemoglobin 12.9 g/dL (12.0-16.0); Mean Corpuscular HGB CONC 33.5 g/dL (32.0-36.0); Mean Corpuscular Hemoglobin 28.9 pg (27.0-31.0); Mean Corpuscular Volume 86.1 fL (78.0-98.0); Mean Platelet Volume 6.8 fL (7.4-10.4); Platelet Count 388 thou/uL (130-400); RBC Distribution Width 12.3 % (11.5-14.5); Red Blood Cell (RBC) Count 4.48 mill/uL (4.20-5.40); White Blood Cell (WBC) Count 9.1 thou/uL (4.8-10.8)
[2021-01-17 13:58] LABS: ALT (SGPT) 34 U/L (8-55); AST (SGOT) 21 U/L (5-34); Albumin 4.2 g/dL (3.5-5.0); Alkaline Phosphatase 108 U/L (40-110); Anion Gap 12 mmol/L (10-20); BUN (Urea Nitrogen) 13 mg/dL (7.0-18.7); Bilirubin, Total 0.2 mg/dL (0.2-1.2); Calc. Creatinine Clearance 0 mL/min (70-130); Calcium 9.6 mg/dL (7.8-10.44); Carbon Dioxide 28 mmol/L (22-29); Chloride 103 mmol/L (98-107); Globulin 3.8 g/dL (2.4-3.5); Glucose 76 mg/dL (70-105); Potassium 3.9 mmol/L (3.5-5.1); Sodium 139 mmol/L (136-145)
[2021-01-17] MEDS ORDERED: Ketorolac Tromethamine 30 MG/ML VIAL ONE (14:31)
== END 2021-01-17 14:40 | disposition home or self-care (01) ==
LOC: ERS 13:06
DX: R07.9 Chest pain, unspecified (principal); J45.909 Unspecified asthma, uncomplicated
CPT/HCPCS: 36415; 71045; 80053; 84484; 85025; 93005; 96372; J1885

== ENCOUNTER 2021-10-20 07:13 | Emergency (ER) | payer MEDICAID, SELFPAY ==
[2021-10-20] MEDS ORDERED: Acetaminophen 500 MG TAB ONE (08:14)
[2021-10-20 15:16] LABS: SARS-CoV-2 PCR by NAA Not Detected (NotDetected)
== END 2021-10-20 08:50 | disposition home or self-care (01) ==
LOC: ERS 07:13
DX: R05.9 Cough, unspecified (principal); Z20.822 Contact with and (suspected) exposure to COVID-19; R03.0 Elevated blood-pressure reading, without diagnosis of hypertension; J45.909 Unspecified asthma, uncomplicated
CPT/HCPCS: 71045; 93005; U0003; U0005

== ENCOUNTER 2022-01-26 10:50 | Observation (INO) | payer MEDICAID, OTHER ==
[2022-01-26] MEDS ORDERED: Aspirin 81 mg Enteric Coated Tablet ONE ×2 (11:42→11:43)
[2022-01-26] MEDS ORDERED: Nitroglycerin 2% Ointment 1 INCH/1 GM Packet ONE (11:42)
[2022-01-26 11:54] LABS: #Basophils 0.1 thou/uL (0.0-0.2); #Lymphocytes 3.2 thou/uL (1.20-3.40); #Monocytes 0.5 thou/uL (0.11-0.59); #Neutrophils 3.6 thou/uL (1.40-6.50); %Eosinophils 0.3 % (0.0-10.0); %Lymphocytes 43.7 % (21.0-51.0); %Monocytes 6.2 % (0.0-10.0); %Neutrophils 48.8 % (42.0-75.0); Hemoglobin 12.6 g/dL (12.0-16.0); Mean Corpuscular Hemoglobin 28.4 pg (27.0-31.0); Mean Corpuscular Volume 88.6 fL (78.0-98.0); Mean Platelet Volume 6.7 fL (7.4-10.4); Platelet Count 460 thou/uL (130-400); RBC Distribution Width 12.2 % (11.5-14.5); Red Blood Cell (RBC) Count 4.46 mill/uL (4.20-5.40); White Blood Cell (WBC) Count 7.3 thou/uL (4.8-10.8)
[2022-01-26 12:16] LABS: ALT (SGPT) 33 U/L (8-55); AST (SGOT) 22 U/L (5-34); Albumin 4.3 g/dL (3.5-5.0); Alkaline Phosphatase 103 U/L (40-110); Anion Gap 14 mmol/L (10-20); BUN (Urea Nitrogen) 10 mg/dL (7.0-18.7); Bilirubin, Total 0.3 mg/dL (0.2-1.2); Calc. Creatinine Clearance 0 mL/min (70-130); Calcium 9.6 mg/dL (7.8-10.44); Carbon Dioxide 23 mmol/L (22-29); Chloride 108 mmol/L (98-107); Globulin 3.3 g/dL (2.4-3.5); Glucose 93 mg/dL (70-105); Lipase 23 U/L (8-78); Potassium 4.2 mmol/L (3.5-5.1); Protein, Total 7.6 g/dL (6.0-8.3); Sodium 141 mmol/L (136-145)
[2022-01-26] MEDS ORDERED: Morphine 4 MG/ML VIAL SLOW IVP SCH (15:00)
[2022-01-26 15:12] VITALS: BMI 44.9
[2022-01-26 15:50] LABS: Troponin I Less than 0.010 ng/mL (< 0.028)
[2022-01-26] MEDS ORDERED: Ondansetron ODT 4 MG TAB SL PRN (17:00)
[2022-01-26] MEDS ORDERED: Ondansetron PF 4 MG/2 ML Vial IVP PRN ×2 (17:00→18:26)
[2022-01-26] MEDS ORDERED: Senokot S 8.6-50 MG TAB PO PRN (18:11)
[2022-01-26] MEDS ORDERED: Acetaminophen 325 MG TAB PO PRN (18:11)
[2022-01-26] MEDS ORDERED: Enoxaparin Sodium 40 MG/0.4 ML SYRINGE SC SCH (18:15)
[2022-01-26] MEDS ORDERED: Melatonin 3 MG TAB PO PRN (18:17)
[2022-01-26] MEDS ORDERED: hydrALAZINE 20 MG/ML VIAL SLOW IVP PRN (18:17)
[2022-01-26] MEDS ORDERED: Nitroglycerin 0.4 MG TAB (25 Tab Bottle) SL PRN (18:17)
[2022-01-26] MEDS ORDERED: Morphine 4 MG/ML VIAL SLOW IVP PRN ×2 (18:32→18:33)
[2022-01-26] MEDS ORDERED: Albuterol Sulfate 2.5 mg/3 ml Neb NEB PRN (18:34)
[2022-01-26] MEDS ORDERED: Pantoprazole 40 MG GRANULES PACKET PO SCH (20:00)
[2022-01-26 20:08] LABS: Troponin I Less than 0.010 ng/mL (< 0.028)
[2022-01-27 04:54] LABS: #Lymphocytes 3.5 thou/uL (1.20-3.40); #Monocytes 0.6 thou/uL (0.11-0.59); #Neutrophils 3.8 thou/uL (1.40-6.50); %Basophils 0.4 % (0.0-1.0); %Eosinophils 0.6 % (0.0-10.0); %Lymphocytes 43.9 % (21.0-51.0); %Monocytes 7.4 % (0.0-10.0); %Neutrophils 47.8 % (42.0-75.0); Hemoglobin 11.8 g/dL (12.0-16.0); Mean Corpuscular HGB CONC 32.6 g/dL (32.0-36.0); Mean Corpuscular Hemoglobin 29.1 pg (27.0-31.0); Mean Corpuscular Volume 89.2 fL (78.0-98.0); Mean Platelet Volume 6.6 fL (7.4-10.4); Platelet Count 353 thou/uL (130-400); RBC Distribution Width 12.1 % (11.5-14.5); Red Blood Cell (RBC) Count 4.05 mill/uL (4.20-5.40)
[2022-01-27 04:55] LABS: ALT (SGPT) 25 U/L (8-55); AST (SGOT) 17 U/L (5-34); Albumin 3.7 g/dL (3.5-5.0); Alkaline Phosphatase 87 U/L (40-110); Anion Gap 11 mmol/L (10-20); BUN (Urea Nitrogen) 15 mg/dL (7.0-18.7); Bilirubin, Total 0.2 mg/dL (0.2-1.2); Calc. Creatinine Clearance 189 mL/min (70-130); Carbon Dioxide 24 mmol/L (22-29); Chloride 108 mmol/L (98-107); Globulin 3.1 g/dL (2.4-3.5); Glucose 94 mg/dL (70-105); Potassium 4.3 mmol/L (3.5-5.1); Protein, Total 6.8 g/dL (6.0-8.3); Sodium 139 mmol/L (136-145)
[2022-01-27 08:30] VITALS: BP 129/68; TEMP 97.5
[2022-01-27 12:08] LABS: SARS-CoV-2 PCR by NAA Not Detected (NotDetected)
[2022-01-27] MEDS ORDERED: Enoxaparin Sodium 40 MG/0.4 ML SYRINGE SC SCH (21:00)
== END 2022-01-27 12:15 | disposition home or self-care (01) ==
LOC: ERS 10:50 → 2SW 12:53
PROVIDERS: ADMIT Family Medicine; ATTEND Internal Medicine
DX: R07.9 Chest pain, unspecified (principal); J45.909 Unspecified asthma, uncomplicated; I10 Essential (primary) hypertension; R51.9 Headache, unspecified; R56.9 Unspecified convulsions; E66.01 Morbid (severe) obesity due to excess calories; Z68.41 Body mass index [BMI] 40.0-44.9, adult; Z82.49 Family history of ischemic heart disease and other diseases of the circulatory system; Z79.899 Other long term (current) drug therapy; Z91.012 Allergy to eggs; Z20.822 Contact with and (suspected) exposure to COVID-19
CPT/HCPCS: 36415; 71045; 78452; 80053; 83690; 83880; 84484; 85025; 85379; 93005; 93017; 96372; 96374; A9500; G0378; J1650; J2270; U0003; U0005

== ENCOUNTER 2022-07-09 06:04 | Emergency (ER) | payer OTHER | END 2022-07-09 07:35 | disposition home or self-care (01) | LOC: ERS 06:04 | DX: S80.02XA Contusion of left knee, initial encounter (principal); Y04.2XXA Assault by strike against or bumped into by another person, initial encounter ==

== ENCOUNTER 2022-11-18 20:07 | Emergency (ER) | payer SELFPAY ==
[2022-11-18 21:08] LABS: #Eosinphils 0.1 thou/uL (0.0-0.7); #Monocytes 0.5 thou/uL (0.11-0.59); #Neutrophils 3.8 thou/uL (1.40-6.50); %Basophils 0.1 % (0.0-1.0); %Eosinophils 0.8 % (0.0-10.0); %Lymphocytes 47.5 % (21.0-51.0); %Monocytes 5.8 % (0.0-10.0); %Neutrophils 45.7 % (42.0-75.0); Hemoglobin 11.6 g/dL (12.0-16.0); Mean Corpuscular HGB CONC 32.9 g/dL (32.0-36.0); Mean Corpuscular Hemoglobin 28.8 pg (27.0-31.0); Mean Corpuscular Volume 87.6 fl (78.0-98.0); Mean Platelet Volume 6.8 fL (7.4-10.4); Platelet Count 387 10x3/uL (130-400); Red Blood Cell (RBC) Count 4.03 mill/uL (4.20-5.40); White Blood Cell (WBC) Count 8.3 10x3/uL (4.8-10.8)
[2022-11-18 21:31] LABS: ALT (SGPT) 16 U/L (8-55); AST (SGOT) 12 U/L (5-34); Alkaline Phosphatase 93 U/L (40-110); Anion Gap 11 mmol/L (10-20); BUN (Urea Nitrogen) 12 mg/dL (7.0-18.7); Bilirubin, Total 0.2 mg/dL (0.2-1.2); Calc. Creatinine Clearance 0 mL/min (70-130); Calcium 9.5 mg/dL (7.8-10.44); Carbon Dioxide 24 mmol/L (22-29); Chloride 109 mmol/L (98-107); Estimated GFR 94; Globulin 3.6 g/dL (2.4-3.5); Glucose 88 mg/dL (70-105); Potassium 3.7 mmol/L (3.5-5.1); Protein, Total 7.6 g/dL (6.0-8.3); Sodium 140 mmol/L (136-145)
[2022-11-18 23:48] LABS: Bilirubin Negative (Negative); Blood, Urine 3+ (Negative); Clarity Turbid (Clear); Glucose, Urine (Dipstick) Normal (Negative); Ketone, Urine Negative (Negative); Leukocyte 500 Leu/uL (Negative); Nitrite Negative (Negative); Protein, Urine (Dipstick) 70 mg/dL (Neg-Trace); Specific Gravity, Urine 1.029 (1.002-1.036); Urobilinogen Normal mg/dL (Less than 2)
[2022-11-18 23:52] LABS: Bacteria/HPF 1+ HPF (None Seen)
[2022-11-18 23:53] LABS: Pregnancy Test - Urine (BHCG) Negative (Negative); Pregu Control Background? CLEAR/WHITE (CLR/WHITE); Pregu Control Bar Appear? YES (CONTROL BAR); Specific Gravity 1.029 (1.002-1.036)
[2022-11-19 00:05] LABS: BHCG - Serum Negative (NEGATIVE); Pregs Control Background? CLEAR/WHITE (CLR/WHITE); Pregs Control Bar Appear? YES (CONTROL BAR)
[2022-11-19] MEDS ORDERED: Ondansetron PF 4 MG/2 ML Vial ONE (00:16)
[2022-11-19] MEDS ORDERED: Morphine 4 MG/ML VIAL ONE (00:16)
[2022-11-19] MEDS ORDERED: Fentanyl 100 MCG/2 ML VIAL ONE (03:34)
[2022-11-19] MEDS ORDERED: Ketorolac Tromethamine 30 MG/ML VIAL ONE ×2 (03:35→06:12)
[2022-11-19] MEDS ORDERED: cefTRIAXone\\ROCEPHIN 2 GM VIAL ONE (03:35)
[2022-11-19] MEDS ORDERED: traMADol HCl 50 MG TAB ONE (06:12)
[2022-11-19] MEDS ORDERED: Iopamidol-370 76% 500 ML 1 ML ONE (10:51)
[2022-11-19 20:59] LABS: Chlamydia by PCR Not Detected (NotDetected); GC by PCR Not Detected (NotDetected)
== END 2022-11-19 06:57 | disposition home or self-care (01) ==
LOC: ERS 20:07
DX: N73.9 Female pelvic inflammatory disease, unspecified (principal); N39.0 Urinary tract infection, site not specified; N83.202 Unspecified ovarian cyst, left side
CPT/HCPCS: 36415; 70450; 71045; 74177; 76856; 80053; 81003; 81015; 81025; 83690; 84484; 84703; 85025; 87086; 87480; 87491; 87510; 87591; 87660; 93005; 96374; 96375; 96376; J0696; J1885; J2270; J2405; J3010

== ENCOUNTER 2022-11-28 13:17 | Emergency (ER) | payer OTHER, SELFPAY ==
[2022-11-28 14:20] LABS: #Eosinphils 0.1 thou/uL (0.0-0.7); #Lymphocytes 2.8 thou/uL (1.20-3.40); #Monocytes 0.4 thou/uL (0.11-0.59); %Basophils 0.5 % (0.0-1.0); %Eosinophils 1.9 % (0.0-10.0); %Lymphocytes 44.4 % (21.0-51.0); %Monocytes 6.9 % (0.0-10.0); %Neutrophils 46.2 % (42.0-75.0); Hemoglobin 12.8 g/dL (12.0-16.0); Mean Corpuscular HGB CONC 32.3 g/dL (32.0-36.0); Mean Corpuscular Hemoglobin 28.4 pg (27.0-31.0); Mean Platelet Volume 7.1 fL (7.4-10.4); Platelet Count 416 10x3/uL (130-400); RBC Distribution Width 12.1 % (11.5-14.5); Red Blood Cell (RBC) Count 4.51 mill/uL (4.20-5.40); White Blood Cell (WBC) Count 6.4 10x3/uL (4.8-10.8)
[2022-11-28 14:41] LABS: ALT (SGPT) 17 U/L (8-55); AST (SGOT) 16 U/L (5-34); Alkaline Phosphatase 93 U/L (40-110); Anion Gap 9 mmol/L (10-20); BUN (Urea Nitrogen) 12 mg/dL (7.0-18.7); Bilirubin, Total 0.2 mg/dL (0.2-1.2); Calc. Creatinine Clearance 0 mL/min (70-130); Calcium 9.4 mg/dL (7.8-10.44); Carbon Dioxide 28 mmol/L (22-29); Chloride 105 mmol/L (98-107); Estimated GFR 90; Globulin 3.6 g/dL (2.4-3.5); Glucose 106 mg/dL (70-105); Potassium 3.8 mmol/L (3.5-5.1); Protein, Total 7.6 g/dL (6.0-8.3); Sodium 138 mmol/L (136-145)
== END 2022-11-28 15:03 | disposition left against medical advice (07) ==
LOC: ERS 13:17
DX: Z53.29 Procedure and treatment not carried out because of patient's decision for other reasons (principal)
CPT/HCPCS: 36415; 71045; 80053; 83880; 84484; 85025; 93005